=== PATIENT | male | born 1970 | race Caucasian/White ===

== ENCOUNTER → 2022-03-11 08:06 | Outpatient (BNVA) | payer MEDICARE, MEDICAID, SELFPAY | PROVIDERS: PCP Family Medicine; Visit Provider Urology | DX: N52.9 Male erectile dysfunction, unspecified (principal) | CPT/HCPCS: 81003; 99203 ==

== ENCOUNTER 2024-11-17 19:56 | Emergency (ER) | payer MEDICARE, SELFPAY ==
[2024-11-17 20:05] VITALS: BP 168/97; PULSE 75; RESP 18; TEMP 36.6; O2SAT 97; BMI 33.9
[2024-11-17 20:17] LABS: Bilirubin Urine Negative (Negative); Blood Urine 3+ (Negative); Glucose Urine UA Trace (Normal); Ketones Urine Trace (Negative); Leukocyte Esterase Urine Negative (Negative); Nitrate Urine Negative (Negative); Protein Urine 2+ (Negative); Urine Appearance Clear (CLEAR); Urine Color Dark Yellow (Yellow)
[2024-11-17 20:22] LABS: Add Urine Microscopic? YES; Bacteria Urine None Seen /hpf; Hyaline Casts Urine 2.87 /lpf; Squamous Epithelial Cell Urine 0-5 /hpf (0-5); WBC Urine 21-50 /hpf (0-5)
[2024-11-17 20:25] LABS: Specific Gravity, Urine 1.039 (1.005-1.030)
[2024-11-17 20:37] LABS: Add Urine Culture? Yes
--- NOTE | 2024-11-17 20:40 | CTR_ITS ---
PROCEDURE INFORMATION: Exam: CT Abdomen And Pelvis Without Contrast Exam date and time: 11/17/2024 8:54 PM Age: 54 years old Clinical indication: Abdominal pain; Right; C/O RT flank pain with hematuria. History of ureterolithiasis. ; Additional info: Flank pain, hematuria TECHNIQUE: Imaging protocol: Computed tomography of the abdomen and pelvis without contrast. Radiation optimization: All CT scans at this facility use at least one of these dose optimization techniques: automated exposure control; mA and/or kV adjustment per patient size (includes targeted exams where dose is matched to clinical indication); or iterative reconstruction. COMPARISON: CR XR chest 2V* [id number] 03/27/2019 4:07 PM RADIATION DOSE METRICS: Total DLP (mGy-cm): 824.15 FINDINGS: Liver: No discrete liver lesions are apparent. Smooth hepatic contour. Gallbladder and biliary ducts: No gallbladder distension or inflammation. No calcified gallstones are apparent. No common bile duct abnormality is evident. Pancreas: No evidence of pancreatitis. No ductal dilation. Spleen: Spleen is within normal limits. Adrenal glands: Slight hyperplasia of the adrenal glands bilaterally, nonspecific. Kidneys and ureters: 8.5 mm distal right ureteral calculus at the UVJ with mild proximal ureterectasis and moderate hydronephrosis. There is perinephric stranding about the right kidney as well. Tiny nonobstructive calculus at the midpole of the left kidney. Stomach and bowel: Small bowel is normal caliber. No obstruction. Large bowel within normal limits. No inflammatory wall thickening or abnormal bowel dilatation. Appendix: No evidence of appendicitis. Intraperitoneal space: No free air. No significant fluid collection. Vasculature: No abdominal aortic aneurysm. Lymph nodes: No pathologically enlarged lymph nodes by CT size criteria. Urinary bladder: Unremarkable as visualized. Reproductive: Unremarkable as visualized. Bones/joints: No acute osseous abnormalities. Soft tissues: Unremarkable. CT/CT kidney stone [id number] IMPRESSION: Right UVJ 8.5 mm calculus with moderate obstructive features. Additional nonobstructive left nephrolithiasis.
--- NOTE | 2024-11-17 20:49 | W.ED.MALEGU ---
HPI - Male Genitourinary General: Chief complaint: Urogenital-Male Stated complaint: R kidney pain Time Seen by Provider: 11/17/24 19:58 Source: patient Mode of arrival: ambulatory Limitations: no limitations History of Present Illness: Patient is a very nice 54-year-old male presents to ED today with a complaint of right lower back pain radiating around into his right abdomen. He states he began noticing pain approximately 2 or so days ago and it was somewhat colicky in nature. He states today pain became sharp and severe and constant. He states he does have a history of a previous kidney/ureter stone and states the pain feels similar. He is having difficulty with urination. He has not noted any hematuria. No fevers. He has not had any nausea or vomiting. MD Complaint: other (flank/abdominal pain; hx of stones) Onset (ago): day(s) Duration: constant Location: right flank Radiation: right flank Severity: severe Severity scale (1-10): 10 Quality: sharp and stabbing Relieving factors: none Exacerbating factors: urination Associated symptoms: Reports no associated symptoms; Deny dysuria, hematuria, nausea or vomiting Related Data Home Medications ?Medication ?Instructions ?Recorded ?Confirmed cyclobenzaprine 10 mg tablet 10 mg PO TID PRN 03/11/22 03/11/22 diclofenac sodium 1 % topical gel 2 g topical QID 03/11/22 03/11/22 levothyroxine 25 mcg capsule 25 mcg PO DAILY 03/11/22 03/11/22 lisinopril 20 mg tablet 20 mg PO DAILY 03/11/22 03/11/22 morphine 30 mg capsule,extended 30 mg PO TID 03/11/22 03/11/22 release 24 hr multiphase pantoprazole 40 mg tablet,delayed 40 mg PO DAILY 03/11/22 03/11/22 release simvastatin 20 mg tablet 20 mg PO DAILY 03/11/22 03/11/22 Previous Rx's ?Medication ?Instructions ?Recorded tadalafil 20 mg tablet 20 mg PO DAILY PRN sexual activity 03/11/22 #20 tabs ketorolac 10 mg tablet 10 mg PO Q8H PRN pain 3 days #9 11/17/24 tabs ondansetron 4 mg disintegrating 4 mg PO Q8H PRN nausea and 11/17/24 tablet vomiting #14 tabs sulfamethoxazole 800 1 tab PO BID 7 days #14 tabs 11/17/24 mg-trimethoprim 160 mg tablet (Bactrim DS) tamsulosin 0.4 mg capsule (Flomax) 0.4 mg PO DAILY #10 caps 11/17/24 Allergies Allergy/AdvReac Type Severity Reaction Status Date / Time No Known Allergies Allergy Unverified 03/11/22 08:08 Review of Systems Const: Denies: fever(s) GI: Reports: abdominal pain; Denies: nausea, vomiting, diarrhea or change in bowel habits : Reports: flank pain, difficulty urinating, urinary urgency and urinary hesitancy; Denies: dysuria, urinary frequency, urinary dribbling, change in urine stream, hematuria, genital pain or scrotal swelling Neuro: Denies: dizziness PFSH ED PFSH: Medical History Erectile dysfunction Social History Smoking and tobacco/nicotine status: tobacco/nicotine user, details unknown (Chews tabacco ) Physical Exam Const: COMMON NORMALS: average body habitus, patient oriented x3, no limitations, healthy appearing, alert and well nourished GENERAL APPEARANCE: cooperative and in distress (somewhat uncomfortable secondary to pain) ORIENTATION/CONSCIOUSNESS: Yes awake, Yes oriented to person, Yes oriented to place and Yes oriented to time Resp: COMMON NORMALS: normal respiratory effort and clear to auscultation bilaterally AUSCULTATION: clear to auscultation bilaterally Cardio: COMMON NORMALS: regular rate and regular rhythm RATE: regular rate RHYTHM: regular rhythm GI: COMMON NORMALS: Normal to inspection, nondistended, normoactive bowel sounds present, Soft to palpation, No hepatosplenomegaly present and no masses INSPECTION: Yes normal to inspection AUSCULTATION: Yes normoactive bowel sounds PALPATION: Yes Soft to palpation, Yes Tenderness to palpation present (GI) (R lower abdomen; states this is radiating from the back), No Guarding due to palpation present (GI), No Rigid due to palpation and Yes No hepatosplenomegaly present : BLADDER/KIDNEY EXAM: Yes CVA tenderness (tenderness just below R CVA) on the right Back/Pelvis: COMMON NORMALS: thoracic and lumbar spine normal to inspection and no thoracic nor lumbar tenderness GENERAL BACK: Yes CVA tenderness (tenderness just below R CVA) Extremity: GENERAL: Yes normal exam except as noted Neuro: COMMON NORMALS: patient oriented x3 SENSORIUM/ORIENTATION: Yes alert, Yes oriented to person, Yes oriented to place and Yes oriented to time Skin: COMMON NORMALS: no rashes or lesions noted GENERAL SKIN EXAM: no rashes or lesions noted Course Vital Signs: Vital signs: Vital Signs Temperature 97.9 F 11/17/24 20:05 Pulse Rate 68 11/17/24 20:53 Respiratory Rate 16 11/17/24 22:23 Blood Pressure 167/81 11/17/24 20:53 Pulse Oximetry 97 11/17/24 20:53 Oxygen Delivery Me thod Room Air 11/17/24 20:53 MDM - Male Medical Decision Making Patient is a nice 54-year-old male here for right sided back pain radiating around to his right abdomen. He was found to have an 8.5 mm right UVJ stone. His pain was controllable here. No vomiting. No fevers. White count is normal. UA is positive for hematuria. 21-50 WBCs due to the presence of blood. He is negative for nitrates and leukocyte esterase. Discussed case with Dr. Noel. Will treat pain/nausea, plac on Flomax, prophylactic antibiotics, urine strainer, and will get him follow-up with urology. Return to ED precautions discussed. Medical Records I reviewed the patient's medical records. Lab Data I reviewed the patient's lab results. 11/17/24 21:52 11/17/24 21:52 Radiology Impressions Abdomen/Pelvis CT 11/17/24 20:40 IMPRESSION: Right UVJ 8.5 mm calculus with moderate obstructive features. Additional nonobstructive left nephrolithiasis. Laboratory Results WBC 8.56 10^3/uL (3.29-11.43) 11/17/24 21:52 RBC 4.76 10^6/uL (3.85-5.65) 11/17/24 21:52 Hgb 13.30 g/dL (11.27-16.99) 11/17/24 21:52 Hct 41.1 % (37-53) 11/17/24 21:52 MCV 86.3 fl (82-101) 11/17/24 21:52 MCH 27.9 pg (27-33) 11/17/24 21:52 MCHC 32.4 g/dL (30-55) 11/17/24 21:52 RDW 13.3 % (12.1-15.1) 11/17/24 21:52 Plt Count 259 10^3/cmm (157-399) 11/17/24 21:52 MPV 8.6 fL (7.4-10.4) 11/17/24 21:52 Neut % (Auto) 85.7 % 11/17/24 21:52 Lymph % (Auto) 8.5 % 11/17/24:52 Starr % (Auto) 4.4 % 11/17/24:52 Eos % (Auto) 0.4 % 11/17/24:52 Baso % (Auto) 0.4 % 11/17/24: Neut # (Auto) 7.34 10^3/uL (1.8-7.7) 11/17/24:52 Lymph # (Auto) 0.7 10^3/uL (0.8-4.8) L 11/17/24 21:52 Starr # (Auto) 0.4 10^3/uL (0.2-0.9) 11/17/24:52 Eos # (Auto) 0.0 10^3/uL (0.0-0.8) 11/17/24 21:52 Baso # (Auto) 0.0 10^3/uL (0.0-0.1) 11/17/24:52 Nucleated RBC % (auto) 0 % 11/17/24:52 Nucleated RBCs # 0.0 /100WBC 11/17/24 21:52 Sodium 140 mmol/L (136-145) 11/17/24 21:52 Potassium 4.2 mmol/L (3.5-5.1) 11/17/24 21:52 Chloride 109 mmol/L (98-107) H 11/17/24 21:52 Carbon Dioxide 21 mmol/L (22-29) L 11/17/24:52 Anion Gap 14.2 (5-19) 11/17/24 21:52 BUN 16 mg/dL (6-20) 11/17/24 21:52 Creatinine 1.0 mg/dL (0.7-1.2) 11/17/24 21:52 GFR Calculation 77.3 mL/min (90-130) L 11/17/24 21:52 Glucose 111 mg/dL (65-115) 11/17/24 21:52 Calculated Osmolality 292 mOsm/kg (285-295) 11/17/24 21:52 Calcium 8.1 mg/dL (8.5-10.5) L 11/17/24 21:52 Total Bilirubin 0.3 mg/dL (0.15-1.2) 11/17/24 21:52 AST 14 U/L (0-40) 11/17/24 21: ALT 26 U/L (0-41) 11/17/24 21: Alkaline Phosphatase 65 U/L (40-130) 11/17/24 21:52 Total Protein 5.8 g/dL (6.6-8.7) L 11/17/24 21: Albumin 3.5 g/dL (3.5-5.2) 11/17/24: Globulin 2.3 g/dL (1.3-4.6) 11/17/24 21:52 Urine Color Dark yellow (Yellow) A 11/17/24 20:11 Urine Appearance Clear (CLEAR) 11/17/24 20:11 Urine pH 5.0 (5-7) 11/17/24 20:11 Ur Specific Declo 1.039 (1.005-1.030) H 11/17/24 20:11 Urine Protein 2+ (Negative) A 11/17/24 20:11 Urine Glucose (UA) Trace (Normal) H 11/17/24 20:11 Urine Ketones Trace (Negative) 11/17/24 20:11 Urine Blood 3+ (Negative) A 11/17/24 20:11 Urine Nitrate Negative (Negative) 11/17/24 20:11 Urine Bilirubin Negative (Negative) 11/17/24 20:11 Urine Urobilinogen 1.0 mg/dL (Negative) 11/17/24 20:11 Ur Leukocyte Esterase Negative (Negative) 11/17/24 20:11 Urine RBC 6-10 /hpf (0-2) 11/17/24 20:11 Urine WBC 21-50 /hpf (0-5) H 11/17/24 20:11 Ur Squamous Epith Cells 0-5 /hpf (0-5) 11/17/24 20:11 Amorphous Sediment Not Reportable 11/17/24 20:11 Urine Bacteria None seen /hpf (NONE) 11/17/24 20:11 Hyaline Casts 2.87 /lpf 11/17/24 20:11 All radiology interpretation(s) finalized by discharge Discharge Plan Discharge Patient Disposition: Home Clinical Impression: Calculus of right ureter Condition: Stable Prescriptions: New sulfamethoxazole-trimethoprim [Bactrim DS] 800-160 mg tablet 1 tab PO BID 7 Days Qty: 14 0RF ketorolac 10 mg tablet 10 mg PO Q8H PRN (Reason: pain) 3 Days Qty: 9 0RF tamsulosin [Flomax] 0.4 mg capsule 0.4 mg PO DAILY Qty: 10 0RF ondansetron 4 mg tablet,disintegrating 4 mg PO Q8H PRN (Reason: nausea and vomiting) Qty: 14 0RF Discontinued diclofenac sodium 50 mg tablet,delayed release (DR/EC) 50 mg PO TID PRN No Action morphine 30 mg capsule, ER multiphase 24 hr 30 mg PO TID simvastatin 20 mg tablet 20 mg PO DAILY diclofenac sodium 1 % gel 2 g topical QID Rx Instructions: apply to single elbow, wrist or hand; for hand includes palm/fingers/back of hand cyclobenzaprine 10 mg tablet 10 mg PO TID PRN pantoprazole 40 mg tablet,delayed release (DR/EC) 40 mg PO DAILY levothyroxine 25 mcg capsule 25 mcg PO DAILY lisinopril 20 mg tablet 20 mg PO DAILY tadalafil 20 mg tablet 20 mg PO DAILY PRN (Reason: sexual activity) Qty: 20 12RF Rx Instructions: administer approximately 30min before sexual activity; NO NITROGLYCERIN! Discharge Orders: Discharge ED (Routine); Ordered 11/17/24 Ordered By: Porsha Purdy Referrals: [facility] [Other] Tim Hurtado MD [Primary Care Provider, Family Practice] Patient Instructions: Ureteral Stones (ED) Activity Restrictions/Additional Instructions: As we discussed, you were found to have an 8.5 mm stone in your right ureter. Case management should contact you early this week to help set you up with a follow-up appointment with urology through [facility]. You may continue your normal pain medications at home. Will give you prescriptions for an additional pain medication, nausea medication, a medication to help with urination, as well as prophylactic antibiotics. You should have been given a strainer at time of discharge. Push fluids is much as possible and begin straining your urine. Please bring any past stones with you to your follow-up urology appointment. [facility]. As we discussed, you need to return to the emergency department for worsening or uncontrollable pain, repetitive episodes of vomiting, fevers, severe flank pain, generally feeling worse or unwell, or any other concerns you may have. I hope you begin to feel better soon. Print Language: Indonesian Coding Level of Care Code ED Hearing Health Technician for Candie Palencia
[2024-11-17 20:53] VITALS: BP 167/81; PULSE 68; RESP 16; O2SAT 97
[2024-11-17] MEDS: sodium chloride 0.9% 1,000 ML 999 ML IV (21:16)
[2024-11-17] MEDS: ondansetron 2 mg/ML SDV 2 mL 4 MG IVP (21:16)
[2024-11-17] MEDS: ketorolac 60 mg/2 mL INJ 30 MG IVP (21:16)
[2024-11-17 22:06] LABS: Basophils % 0.4 %; Eosinophils % 0.4 %; Hematocrit 41.1 % (37-53); Lymphocytes # 0.7 10^3/uL (0.8-4.8); Lymphocytes % 8.5 %; Mean Corpuscular HGB Conc 32.4 g/dL (30-55); Mean Corpuscular Hemoglobin 27.9 pg (27-33); Mean Corpuscular Volume 86.3 fl (82-101); Mean Platelet Volume 8.6 fL (7.4-10.4); Monocytes # 0.4 10^3/uL (0.2-0.9); Monocytes % 4.4 %; Neutrophils # 7.34 10^3/uL (1.8-7.7); Neutrophils % 85.7 %; Nucleated Red Blood Cells % 0 %; Platelet Count 259 10^3/cmm (157-399); Red Blood Count 4.76 10^6/uL (3.85-5.65); Red Cell Distribution Width 13.3 % (12.1-15.1); White Blood Count 8.56 10^3/uL (3.29-11.43)
[2024-11-17 22:23] VITALS: RESP 16
[2024-11-17] MEDS: morphine 4 mg/mL SDV 1 mL IVP (22:23)
[2024-11-17 22:28] LABS: Alanine Aminotransferase 26 U/L (0-41); Albumin Level 3.5 g/dL (3.5-5.2); Alkaline Phosphatase 65 U/L (40-130); Anion Gap 14.2 (5-19); Aspartate Amino Transferase 14 U/L (0-40); Blood Urea Nitrogen 16 mg/dL (6-20); Calcium 8.1 mg/dL (8.5-10.5); Carbon Dioxide 21 mmol/L (22-29); Chloride 109 mmol/L (98-107); Creatinine Clr Calc Pharmacy 89.1119; Globulin 2.3 g/dL (1.3-4.6); Glomerular Filtration Rate 77.3 mL/min (90-130); Glucose 111 mg/dL (65-115); Osmolality Calculated 292 mOsm/kg (285-295); Potassium 4.2 mmol/L (3.5-5.1); Sodium 140 mmol/L (136-145); Total Bilirubin 0.3 mg/dL (0.15-1.2); Total Protein 5.8 g/dL (6.6-8.7)
[2024-11-17 23:03] VITALS: BP 166/78; PULSE 78; RESP 16; O2SAT 96
== END 2024-11-17 23:04 | disposition home or self-care (01) ==
PROVIDERS: Emergency Provider Physician Assistant; PCP Family Medicine
DX: N20.1 Calculus of ureter (principal); F17.220 Nicotine dependence, chewing tobacco, uncomplicated
CPT/HCPCS: 36415; 74176; 80053; 81001; 85025; 87086; 96374; 96375; 99285; J1885; J2270; J2405; J7030

== ENCOUNTER 2025-01-15 10:47 | Outpatient (CLI) | payer MEDICARE, SELFPAY ==
--- NOTE | 2025-01-15 10:58 | USR_ITS ---
PROCEDURE INFORMATION: Exam: US Retroperitoneal, Complete, Kidneys and Bladder Exam date and time: 01/15/2025 11:26 AM Age: 54 years old Clinical indication: Condition or disease; Kidney or ureter condition; Hydronephrosis; Additional info: Hydronephrosis w/obstructing calculus/r ureteral stone TECHNIQUE: Imaging protocol: Real-time ultrasound of the retroperitoneum with image documentation. Complete exam focused on the bilateral kidneys and urinary bladder. COMPARISON: CT kidney stone [id number] 11/17/2024 8:54 PM FINDINGS: Right kidney: The right kidney measures 9.4 cm. Right renal parenchymal echogenicity is within normal limits. No right renal mass or hydronephrosis. Left kidney: The left kidney measures 9 cm. Left renal parenchymal echogenicity is within normal limits. No left hydronephrosis or left renal mass. Urinary bladder: The bladder was incompletely distended. Bilateral ureteral jets were noted. The bladder is unremarkable. US/US renal BI* [id number] IMPRESSION: Unremarkable kidneys and bladder.
== END 2025-01-15 10:48 | disposition home or self-care (01) ==
LOC: RAD 10:50
PROVIDERS: PCP Family Medicine; Visit Provider Urology
DX: N13.2 Hydronephrosis with renal and ureteral calculous obstruction (principal)
CPT/HCPCS: 76770